=== PATIENT | female | born 1995 | race Caucasian/White ===

== ENCOUNTER 2020-12-07 09:22 | Outpatient (CLI) | payer OTHER | END 2020-12-07 09:23 | disposition home or self-care (01) | LOC: CSHMRI 09:22 | PROVIDERS: ATTEND Family Medicine | DX: M54.41 Lumbago with sciatica, right side (principal); M51.27 Other intervertebral disc displacement, lumbosacral region; M48.07 Spinal stenosis, lumbosacral region; M47.816 Spondylosis without myelopathy or radiculopathy, lumbar region | CPT/HCPCS: 72148 ==